=== PATIENT | male | born 1980 | race Caucasian/White ===

== ENCOUNTER 2017-10-30 21:25 | Emergency (ER) | payer OTHER ==
[~2017-10-30] VITALS: Ht 180.3 cm; Wt 112.9 kg
[2017-10-30] MEDS ORDERED: PREDNISONE20 MG PO (21:47)
== END 2017-10-30 22:02 | disposition home or self-care (01) ==
LOC: FSED 21:25
DX: L23.7 Allergic contact dermatitis due to plants, except food (principal)
CPT/HCPCS: 99283